=== PATIENT | male | born 1965 | race Caucasian/White ===

== ENCOUNTER 2018-06-20 07:33 | Emergency (ER) | payer MEDICAID ==
[~2018-06-20] VITALS: Ht 170.2 cm; Wt 70.8 kg
[2018-06-20 07:39] VITALS: Ht 170.2 cm; Wt 70.8 kg
[2018-06-20 09:23] VITALS: BP 157/99
== END 2018-06-20 09:35 | disposition home or self-care (01) ==
LOC: ED 07:33
DX: R10.9 Unspecified abdominal pain (principal); R53.81 Other malaise
CPT/HCPCS: J1885